=== PATIENT | male | born 1985 | race Caucasian/White ===

== ENCOUNTER 2020-09-23 21:14 | Emergency (ER) | payer OTHER ==
[2020-09-24] MEDS ORDERED: MUCINEX 600MG600 MG PO (00:05)
[2020-09-24] MEDS ORDERED: CLEOCIN300 MG PO (00:05)
[2020-09-24] MEDS ORDERED: NAPROXEN500 MG PO (00:05)
[2020-09-24] MEDS ORDERED: VIBRAMYCIN100 MG PO (00:05)
[2020-09-27 14:07] LABS: CHLAMYDIA TRACHOMATIS, NAA Negative (Negative); NEISSERIA GONORRHOEAE, NAA Negative (Negative)
== END 2020-09-24 00:50 | disposition home or self-care (01) ==
LOC: FER 21:14
PROVIDERS: Emergency Medicine
DX: H71.91 Unspecified cholesteatoma, right ear (principal); N34.2 Other urethritis; F17.210 Nicotine dependence, cigarettes, uncomplicated
CPT/HCPCS: 86593; 87491; 87591; 99283; J0696

== ENCOUNTER 2021-11-22 13:09 | Emergency (ER) | payer OTHER ==
[~2021-11-22 13:09] MED LIST: CLEOCIN300 MG PO; MUCINEX 600MG600 MG PO; NAPROXEN500 MG PO; VIBRAMYCIN100 MG PO
[2021-11-22 14:07] LABS: BASOPHIL 0.4 % (0-2); EOSINOPHIL 0.2 % (0-5); HCT 46.1 % (42.0-52.0); HGB 15.6 g/dl (13.2-18.0); LYMPHOCYTE 10.2 % (15-48); MCH 28.3 pg (25.0-31.0); MCHC 33.8 g/dL (32.0-36.0); MCV 83.7 fL (78.0-100.0); MONOCYTE 4.3 % (0-12); MPV 10.5 fL (6.0-9.5); NEUTROPHIL 84.5 % (41-80); NRBC 0; PLT 164 K/uL (150-400); RBC 5.51 M/uL (4.70-6.00); RDW 12.2 % (11.5-14.0); WBC 12.8 K/uL (4.0-10.5)
[2021-11-22 14:08] LABS: BILIRUBIN NEGATIVE (NEGATIVE); BLOOD 3+ Ery/uL (NEGATIVE); CLARITY HAZY (CLEAR); COLOR YELLOW (YELLOW); GLUCOSE (U) NORMAL (NORMAL); LEUKOCYTES TRACE Leu/uL (NEGATIVE); NITRITE NEGATIVE (NEGATIVE); PROTEIN TRACE (LOW) mg/dL (NEGATIVE); UROBILINOGEN 0.2 mg/dL (0.2-1.0); pH 6.5 (5.0-9.0)
[2021-11-22 14:21] LABS: SQUAMOUS EPITHELIAL CELLS RARE; URINARY RBC TNTC; URINARY WBC RARE
[2021-11-22 14:25] LABS: ALBUMIN 4.1 g/dL (3.4-5.0); BILIRUBIN - TOTAL 0.5 mg/dL (0.2-1.0); BUN/CREAT RATIO (CALC) 12.4 RATIO; CREATININE 1.13 mg/dL (0.67-1.17); GLOBULIN (CALCULATION) 3.2 g/dL; POTASSIUM 4.1 mmol/L (3.5-5.1); TOTAL PROTEIN 7.3 g/dL (6.4-8.2)
[2021-11-22] MEDS ORDERED: FLOMAX 0.4 MG0.4 MG PO (15:21)
[2021-11-22] MEDS ORDERED: KETOROLAC TROME10 MG PO (15:21)
[2021-11-22] MEDS ORDERED: CORTISPORIN-TC10 M1 EARRT ×2 (15:44→15:46)
== END 2021-11-22 15:51 | disposition home or self-care (01) ==
LOC: FER 13:09
PROVIDERS: Emergency Medicine
DX: N13.2 Hydronephrosis with renal and ureteral calculous obstruction (principal); F17.290 Nicotine dependence, other tobacco product, uncomplicated; Z28.310 Unvaccinated for COVID-19
CPT/HCPCS: 36415; 80053; 81001; 83690; 85025; J1885